=== PATIENT | male | born 1950 | race African-American/Black ===

== ENCOUNTER 2020-04-06 08:22 | Inpatient (IN) | payer MEDICARE, MEDICAID ==
[~2020-04-06] VITALS: Ht 182.9 cm; Wt 80.8 kg
[2020-04-06 10:54] LABS: BASOPHILS % 0.7 % (0.0-2.0); EOSINOPHILS % 4.1 % (0.0-5.0); HEMATOCRIT. 43.5 % (42.0-52.0); HEMOGLOBIN. 14.4 g/dL (14.0-18.0); LYMPHOCYTES % 21.6 % (20.0-50.0); MEAN CORPUSCULAR HEMOGLOBIN 27.5 pg (28.0-32.0); MEAN CORPUSCULAR VOLUME 82.8 fL (80.0-94.0); MEAN PLATELET VOLUME 9.1 fl (7.4-10.4); NEUTROPHILS % 60.6 % (40.0-76.0); PLATELET 149 x1000/uL (130-400); RED BLOOD CELL COUNT 5.25 mill/uL (4.7-6.1); RED CELL DISTRIBUTION WIDTH 16.6 % (11.6-14.6)
[2020-04-06 11:45] LABS: CHLORIDE 110 mEq/L (98-107)
[2020-04-06 11:49] LABS: ETHANOL BLOOD < 10 mg/dL
[2020-04-06] MEDS ORDERED: LORAZEPAM 2MG/ML CPJ IV ONE (12:30)
[2020-04-06] MEDS ORDERED: LEVETIRACETAM 500MG PREMIX 100 ML IV ONE (12:45)
[2020-04-06] MEDS ORDERED: ASPIRIN 600MG SUPP PR ONE (13:45)
[2020-04-06] MEDS ORDERED: ACETAMINOPHEN 325MG TABLET PO PRN (14:45)
[2020-04-06] MEDS ORDERED: LORAZEPAM 2MG/ML CPJ IV PRN (14:45)
[2020-04-06] MEDS ORDERED: ONDANSETRON HCL 4MG/2ML INJ IV PRN (14:45)
[2020-04-06 15:01] VITALS: BP 133/73
[2020-04-06 15:29] VITALS: BP 133/73
[2020-04-06 16:00] VITALS: BP 128/79
[2020-04-06] MEDS ORDERED: ENOXAPARIN 40MG/0.4ML SYR SUBCUT SCH (16:00)
[2020-04-06 17:12] LABS: CLARITY URINE CLEAR (CLEAR); COLOR URINE YELLOW (YELLOW); KETONES URINE NEGATIVE (NEGATIVE); LEUKOCYTE ESTERASE URINE TRACE (NEGATIVE); NITRITE URINE NEGATIVE (NEGATIVE); OCCULT BLOOD URINE NEGATIVE (NEGATIVE); PROTEIN URINE NEGATIVE (NEGATIVE); SPECIFIC GRAVITY URINE 1.015 (1.005-1.030)
[2020-04-06] MEDS ORDERED: PNEUMOCOCCAL 23-VAL P-SAC VAC 0.5 ML IM ONE (17:30)
[2020-04-06] MEDS ORDERED: INFLUENZA VACCINE 05/PF 0.5 ML VIAL IM ONE (17:30)
[2020-04-06 17:42] LABS: *AMPHETAMINES SCREEN URINE NEGATIVE (NEGATIVE); *BARBITURATES SCREEN URINE NEGATIVE (NEGATIVE); *BENZODIAZEPINES SCREEN URINE PRESUMTIVE POSITIVE (NEGATIVE)
[2020-04-06 17:46] LABS: METHADONE URINE SCREEN NEGATIVE (NEGATIVE); OPIATES URINE SCREEN NEGATIVE (NEGATIVE)
[2020-04-06 17:47] LABS: CANNABINOID URINE SCREEN NEGATIVE (NEGATIVE); PHENCYCLIDINE URINE SCREEN NEGATIVE (NEGATIVE)
[2020-04-06 18:00] VITALS: BP 142/62
[2020-04-06 18:02] LABS: *COCAINE SCREEN URINE PRESUMTIVE POSITIVE (NEGATIVE)
[2020-04-06 20:11] VITALS: BP 98/52
[2020-04-06] MEDS: LEVETIRACETAM 500MG TABLET PO SCH (21:53)
[2020-04-06 22:00] VITALS: BP 94/62
[2020-04-07] VITALS (7 sets, daily range): BP systolic 98–118; BP diastolic 51–69
[2020-04-07 06:00] LABS: BASOPHILS % 0.6 % (0.0-2.0); EOSINOPHILS % 6.4 % (0.0-5.0); HEMATOCRIT. 37.8 % (42.0-52.0); HEMOGLOBIN. 12.6 g/dL (14.0-18.0); MEAN CORPUSCULAR HEMOGLOBIN 27.5 pg (28.0-32.0); MEAN CORPUSCULAR VOLUME 82.4 fL (80.0-94.0); MEAN PLATELET VOLUME 9.4 fl (7.4-10.4); PLATELET 190 x1000/uL (130-400); RED BLOOD CELL COUNT 4.59 mill/uL (4.7-6.1); RED CELL DISTRIBUTION WIDTH 16.6 % (11.6-14.6)
[2020-04-07 06:51] LABS: CHLORIDE 112 mEq/L (98-107)
[2020-04-07] MEDS: LEVETIRACETAM 500MG TABLET PO SCH (08:43)
[2020-04-07] MEDS ORDERED: MULTIVITAMINS,THER W-MINERALS TABLET PO SCH (09:00)
[2020-04-07] MEDS ORDERED: THIAMINE HCL 100MG TABLET PO SCH (09:00)
[2020-04-07] MEDS ORDERED: FOLIC ACID 1MG TABLET PO SCH (09:00)
[2020-04-07] MEDS ORDERED: KEPP500 MT (10:53)
== END 2020-04-07 13:35 | disposition home or self-care (01) | DRG 101 ==
LOC: ER 08:37 → EDBD 08:37 → 3WST 12:33 → ENRESERV 13:50
PROVIDERS: ADMIT Internal Medicine; ATTEND Internal Medicine
DX: G40.909 Epilepsy, unspecified, not intractable, without status epilepticus (principal); E44.1 Mild protein-calorie malnutrition; I10 Essential (primary) hypertension; F16.90 Hallucinogen use, unspecified, uncomplicated; F14.10 Cocaine abuse, uncomplicated; E78.00 Pure hypercholesterolemia, unspecified; E87.8 Other disorders of electrolyte and fluid balance, not elsewhere classified; D64.9 Anemia, unspecified; E78.5 Hyperlipidemia, unspecified; Z91.14 Patient's other noncompliance with medication regimen; Z86.73 Personal history of transient ischemic attack (TIA), and cerebral infarction without residual deficits; Z91.19 Patient's noncompliance with other medical treatment and regimen; Z79.899 Other long term (current) drug therapy; Z68.24 Body mass index [BMI] 24.0-24.9, adult
CPT/HCPCS: 36415; 70551; 80048; 80053; 80305; 80320; 81003; 84484; 85025; 93005; 96365; 99291; J1650; J1953; J2060; G0480